=== PATIENT | male | born 1945 | race Caucasian/White ===

== ENCOUNTER 2017-10-21 15:10 | Emergency (ER) | payer MEDICARE, BC ==
[~2017-10-21] VITALS: Ht 195.6 cm; Wt 85.5 kg
[~2017-10-21 15:10] MED LIST: CEPHALEXIN500 M1 PO; FLOMAX 0.40.4 MG/CAP PO; FOLIC ACID 11 MG/TA1 PO; PREDNISONE20 MG PO; VIAGRA100 MG PO; WELLBUTRIN 75MG75 MG PO; ZOLOFT 100MG100 MG PO; ZOLOFT 25MG25 MG PO
[2017-10-21 15:21] VITALS: TEMP 98
[2017-10-21 18:44] VITALS: BP 110/68; PULSE 69
== END 2017-10-21 18:45 | disposition home or self-care (01) ==
LOC: COL.ER 15:10
DX: S70.02XA Contusion of left hip, initial encounter (principal); S30.0XXA Contusion of lower back and pelvis, initial encounter; V89.2XXA Person injured in unspecified motor-vehicle accident, traffic, initial encounter

== ENCOUNTER 2020-07-09 14:36 | Outpatient (CLI) | payer MEDICARE, BC ==
[~2020-07-09] VITALS: Ht 195.6 cm; Wt 87.0 kg
[2020-07-09 15:03] VITALS: BP 106/71; PULSE 95; TEMP 101
[2020-07-09] MEDS ORDERED: ANTIVERT 12.512.5 MG PO (15:25)
[2020-07-09] MEDS ORDERED: WELLBUTRIN XL300 M1 PO (15:26)
[2020-07-09] MEDS ORDERED: VITAMIN D 400400 IU PO (15:26)
[2020-07-09] MEDS ORDERED: VITAMIN D31000 I1 PO (15:27)
[2020-07-09] MEDS ORDERED: VITAMINC1000TA PO (15:28)
[2020-07-09] MEDS ORDERED: ONE-A-DAY ESSE1 EACH PO (15:28)
[2020-07-09] MEDS ORDERED: PHARMASSURE ZIN50 MG PO (15:29)
[2020-07-09 15:39] VITALS: BP 106/66; PULSE 87
[2020-07-09 15:53] VITALS: BP 94/61; PULSE 90; TEMP 98.9
[2020-07-09 16:15] VITALS: BP 105/64; PULSE 87
[2020-07-09 16:30] VITALS: BP 107/71; PULSE 86
[2020-07-09 16:45] VITALS: BP 107/72; PULSE 85; TEMP 98.7
--- NOTE | 2020-07-09 17:09 | NUR ---
Pt tolerated infusion without issue. INT was DC'd with catheter intact. He was assisted out to 's car by wheelchair.
== END 2020-07-09 17:10 | disposition home or self-care (01) ==
LOC: EUO 14:36
DX: Z23 Encounter for immunization (principal); U07.1 COVID-19

== ENCOUNTER 2020-09-07 | Emergency (ER) | payer MEDICARE, BC ==
[~2020-09-07] VITALS: Ht 195.6 cm; Wt 87.3 kg
[~2020-09-07] MED LIST changes: +ANTIVERT 12.512.5 MG PO; +ONE-A-DAY ESSE1 EACH PO; +PHARMASSURE ZIN50 MG PO; +VITAMIN D 400400 IU PO; +VITAMIN D31000 I1 PO; +VITAMINC1000TA PO; +WELLBUTRIN XL300 M1 PO
[2020-09-07 00:25] LABS: BASO % 0.4 % (0.0-2.0); EOS # 0.1 (0.0-0.7); EOS % 1.5 % (0-4.0); GRAN # 5.3 (1.4-6.5); HEMOGLOBIN 11.7 g/dl (13.5-18.0); LYMPH # 1.3 (1.2-3.4); LYMPH % 17.1 % (20.0-51.0); MEAN CELL VOLUME 91 fl (80.0-100.0); MEAN CORPUSCULAR HEMOGLOBIN 30 pg (27.0-31.0); MEAN CORPUSCULAR HGB CONC 33 g/dl (33.0-37.0); MEAN PLATELET VOLUME 10.3 fl (7.4-10.4); MONO # 0.6 (0.1-0.6); MONO % 8.6 % (1.7-9.3); PLATELET COUNT 246 K/mm3 (130-400); RED BLOOD COUNT 3.89 M/mm3 (4.20-5.60); REDCELL DISTRIBUTION WIDTH-CV 13.4 % (11.5-14.5)
[2020-09-07 00:26] LABS: HEMATOCRIT 35.4 % (42.0-52.0)
[2020-09-07 00:27] LABS: INR 1.4 (0.8-3.0); PROTHROMBIN TIME 15.5 SECONDS (9.7-12.8)
[2020-09-07 00:29] LABS: PARTIAL THROMBOPLASTIN TIME 26.7 SECONDS (26.0-37.0)
[2020-09-07 00:33] LABS: ALANINE AMINOTRANSFERASE 52 U/L (4-49); ALKALINE PHOSPHATASE 54 U/L (50-136); ANION GAP 11 mmol/L (7-16); AST,SGOT 45 U/L (15-37); BILIRUBIN,TOTAL 0.3 mg/dL (0.0-1.0); BLOOD UREA NITROGEN 24 mg/dL (9-20); CALCIUM 8.5 mg/dL (8.4-10.2); CARBON DIOXIDE 20 mmol/L (22-30); CHLORIDE 103 mmol/L (98-107); CREATINE KINASE 218 U/L (55-170); CREATININE, serum 0.72 (0.66-1.25); GLUCOSE 147 mg/dL (74-106); LIPASE 109 U/L (23-300); POTASSIUM 4.3 mmol/L (3.4-5.0); SODIUM 134 mmol/L (137-145); TOTAL PROTEIN 6.9 gm/dL (6.4-8.2)
[2020-09-07 00:35] LABS: ALCOHOL(ethanol),MEDICAL < 10 mg/dL
[2020-09-07 00:50] LABS: TROPONIN-I < 0.012 ng/mL (0.000-0.035)
[2020-09-07 02:34] VITALS: BP 113/89; PULSE 66
== END 2020-09-07 02:52 | disposition home or self-care (01) ==
LOC: COL.ER
PROVIDERS: Emergency Medicine
DX: M25.571 Pain in right ankle and joints of right foot (principal); M25.572 Pain in left ankle and joints of left foot; M25.531 Pain in right wrist; R11.0 Nausea; E86.0 Dehydration; F43.10 Post-traumatic stress disorder, unspecified; V86.95XA Unspecified occupant of 3- or 4- wheeled all-terrain vehicle (ATV) injured in nontraffic accident, initial encounter
CPT/HCPCS: J2060; J2405; J3010; J7030; Q9967

== ENCOUNTER 2021-05-02 14:01 | Emergency (ER) | payer MEDICARE, BC ==
[2021-05-02 15:40] LABS: BASO % 0.4 % (0.0-2.0); EOS # 0.1 K/mm3 (0.0-0.7); EOS % 0.5 % (0.0-4.0); GRAN % 83.7 % (42.2-75.2); HEMOGLOBIN 12.9 g/dl (13.5-18.0); LYMPH # 0.9 K/mm3 (1.2-3.4); LYMPH % 8.5 % (20.0-51.0); MEAN CELL VOLUME 92 fl (80.0-100.0); MEAN CORPUSCULAR HEMOGLOBIN 31 pg (27-31); MEAN CORPUSCULAR HGB CONC 33 g/dl (33.0-37.0); MONO # 0.7 K/mm3 (0.1-0.6); MONO % 6.4 % (1.7-9.3); PLATELET COUNT 257 K/mm3 (130-400); RED BLOOD COUNT 4.23 M/mm3 (4.20-5.60); REDCELL DISTRIBUTION WIDTH-CV 13.2 % (11.5-14.5)
[2021-05-02 16:00] LABS: BILIRUBIN,TOTAL 0.4 mg/dL (0.2-1.2); CALCIUM 9.2 mg/dL (8.4-10.2); CREATININE, serum 0.86 mg/dL (0.72-1.25); POTASSIUM 4.6 mmol/L (3.5-4.5); TOTAL PROTEIN 6.9 gm/dL (6.2-8.1)
[2021-05-02] MEDS ORDERED: PERCOCET 325 MG1 TA2 PO (18:18)
[2021-05-02 19:10] VITALS: BP 129/72; PULSE 68; TEMP 97.9
[2021-05-03] MEDS ORDERED: ZOFRAN ODT4 MG PO (03:40)
[2021-05-03] MEDS ORDERED: ASPERCREME1 EACH TP (03:40)
== END 2021-05-02 19:10 | disposition home or self-care (01) ==
LOC: COL.ER 14:01
PROVIDERS: Family Medicine
DX: S22.42XA Multiple fractures of ribs, left side, initial encounter for closed fracture (principal); S42.112A Displaced fracture of body of scapula, left shoulder, initial encounter for closed fracture; G61.0 Guillain-Barre syndrome; W11.XXXA Fall on and from ladder, initial encounter
CPT/HCPCS: J2270; J2405; Q9967

== ENCOUNTER 2021-05-03 02:49 | Emergency (ER) | payer MEDICARE, BC ==
[~2021-05-03] VITALS: Ht 195.6 cm; Wt 88.6 kg
[~2021-05-03 02:49] MED LIST changes: +PERCOCET 325 MG1 TA2 PO
[2021-05-03 02:52] VITALS: TEMP 97.4
[2021-05-03] MEDS ORDERED: ZOFRAN ODT4 MG PO (03:40)
[2021-05-03] MEDS ORDERED: ASPERCREME1 EACH TP (03:40)
[2021-05-03 04:47] VITALS: BP 125/88; PULSE 82
== END 2021-05-03 04:52 | disposition home or self-care (01) ==
LOC: COL.ER 02:49
DX: S22.42XA Multiple fractures of ribs, left side, initial encounter for closed fracture (principal); R11.2 Nausea with vomiting, unspecified; F43.10 Post-traumatic stress disorder, unspecified; Z79.899 Other long term (current) drug therapy; W19.XXXA Unspecified fall, initial encounter
CPT/HCPCS: J1170; J2270; J2765